=== PATIENT | female | born 1960 | race Caucasian/White ===

== ENCOUNTER → 2022-07-21 10:41 | Outpatient (CLI) | payer MEDICARE, SELFPAY ==
--- NOTE | 2022-07-21 10:49 | MM_ITS ---
PROCEDURE INFORMATION: Exam: Bilateral Screening 3D Mammography Exam date and time: 07/21/2022 10:43 AM Age: 61 years old Clinical indication: Screening mammogram TECHNIQUE: Imaging protocol: Bilateral Screening tomosynthesis and 2D mammography including computer-aided detection (CAD) when performed. COMPARISON: MAMM-SCREENING W/FERNY 05/12/2019 11:00 AM FINDINGS: MAMMOGRAPHY: Breast composition: The breast is heterogeneously dense, which may obscure small masses. Mass: None. Architectural distortion: No new or suspicious architectural distortion. Calcifications: Stable benign-appearing calcifications are present. No new or suspicious cluster of microcalcifications have developed. Asymmetric density: No new or suspicious asymmetric density is present Skin thickening: None. Axillary adenopathy: None. IMPRESSION: No mammographic evidence of malignancy. Recommend annual screening mammography unless otherwise clinically indicated. ASSESSMENT: BI-RADS category 2: Benign
== END ==
PROVIDERS: PCP Family Medicine; Visit Provider Family Medicine
DX: Z12.31 Encounter for screening mammogram for malignant neoplasm of breast (principal)
CPT/HCPCS: 77063; 77067

== ENCOUNTER → 2022-07-23 12:25 | Outpatient (CLI) | payer MEDICARE, SELFPAY ==
--- NOTE | 2022-07-23 12:32 | XR_ITS ---
FINAL REPORT CLINICAL HISTORY: Foot Pain FINDINGS: AP, oblique and lateral views of the left foot were obtained. There is no prior exam for comparison. There is no acute fracture or dislocation. The joint spaces are preserved. Soft tissues are normal. IMPRESSION: No acute osseous abnormality of the left foot. Reviewed, Interpreted and Dictated by Senait Tom MD Transcribed by Carlie Kuhn Authenticated and [facility]
--- NOTE | 2022-07-23 12:32 | XR_ITS ---
FINAL REPORT CLINICAL HISTORY: Foot Pain FINDINGS: AP, oblique and lateral views of the right foot were obtained. There is no prior exam for comparison. There is no acute fracture or dislocation. The joint spaces are preserved. Soft tissues are normal. IMPRESSION: No acute osseous abnormality of the right foot. Reviewed, Interpreted and Dictated by Senait Tom MD Transcribed by Carlie Kuhn Authenticated and [facility]
== END ==
LOC: RAD 12:28
PROVIDERS: PCP Family Medicine; Visit Provider Nurse Practitioner Family
DX: M79.672 Pain in left foot (principal); M79.671 Pain in right foot
CPT/HCPCS: 73630

== ENCOUNTER 2022-07-31 12:24 | Day surgery (SDC) | payer MEDICARE, SELFPAY ==
[2022-07-23 12:34] VITALS: BMI 19.9
[2022-07-31 13:19] VITALS: BP 150/62; PULSE 62; RESP 18; TEMP 36.4; O2SAT 100
--- NOTE | 2022-07-31 13:49 | P.PN_ITS ---
[facility] Disclaimer: The information contained in this section may have been updated after the patient was seen, as this information can be updated by other users. Medical History Anxiety Arthritis Asthma CAD (coronary artery disease) CHF (congestive heart failure) COPD (chronic obstructive pulmonary disease) Depression Diabetes mellitus GERD (gastroesophageal reflux disease) Hyperlipidemia Hypertension Hypothyroid Insomnia Neuropathy Vitamin D deficiency Surgical History H/O total hysterectomy History of cholecystectomy Hx of CABG Hx of cardiac cath S/P breast lumpectomy Family History Father Cancer Coronary artery disease Heart attack Mother Heart attack Coronary artery disease Hypertension Brother Coronary artery disease Diabetes Heart attack Hypertension Stroke Sister Coronary artery disease Diabetes Stroke Social History Smoking Status: Current every day smoker tobacco type: cigarettes packs per day: 1 pack-years: 40 alcohol intake: never substance use type: denies use current occupational status: disabled Travel in the last 8 weeks: None household members: family housing: house marital status: number of children: 2 education level: high school caffeine: Yes special javier needs: No agree to transfusion: No do you feel safe at home: Yes victim of physical abuse: No victim of emotional abuse: No victim of sexual abuse: No would you like helpful sources: No [facility] Anesthesia Checklist Patient Identification Patient Identification: Arm Band and Verbal (Name & ) Structural Data Admitted From: Home Planned Operative Procedure/s: Colonoscopy Consent for Planned Operative Procedure(s) Verified: Yes NPO Status Verified Time NPO: 00:00 Airway Assessment C-Spine Mobility Assessed: Yes TMJ Mobility Assessed: Yes Dentition: Dentures-poor fitting Neurological Assessment Level of Consciousness: Awake Hx Seizures: No Numbness or tingling in extremities: No Anesthesia Plan Anesthesia Risk discussed: Yes Anesthesia Plan: Verified ASA Class: IV Anesthesia Type: MAC Preoperative Comments Pre-Operative Comments: Increased risk of complications including cardiac arrest, AL and due to recent history of chest pain relieved by NTG, explained to patient and sister. Patient and sister verbalized understanding and agreed to proceed.
[2022-07-31 13:51] VITALS: O2SAT 98
[2022-07-31 14:11] VITALS: BP 88/39; PULSE 51; RESP 18; TEMP 36.1; O2SAT 95
--- NOTE | 2022-07-31 14:20 | HMH.SCOPE ---
Procedure: Date: 07/31/22 Patient Date of :: 1960 Procedure Performed:: Diagnostic colonoscopy Indications:: Rectal bleeding Performing Provider:: Nicole Franco MD Referring Provider:: Marilu Li MD Sedation:: Propofol Procedure:: After placing the patient in the left lateral decubitus position, the colonoscopy was gently inserted into the rectum and under direct visualization advanced to the cecum which was identified by transillumination in the right lower quadrant, identification of the ileocecal valve, appendiceal orifice, and cecal strap. Color, texture, mucosa, and anatomy of the colon were carefully examined with the scope. Findings:: Anal canal: normal, external hemorrhoid tags, not removable via endoscopy Rectum: normal, minor hemorrhoids Sigmoid colon: normal without polyps or inflammatory changes, scattered diverticulosis Descending colon: normal without polyps or inflammatory changes Splenic flexure: normal Transverse colon: normal without polyps or inflammatory changes Hepatic flexure: normal Ascending colon: normal without polyps or inflammatory changes Cecum: normal Terminal ileum: not visualized Impression: Overall normal colonoscopy with minor hemorrhoids and scattered diverticuli Recommendations:: Follow up examination in about FIVE years or so, sooner if clinically indicated. Complications:: None Estimated blood obtained (mL): 0
[2022-07-31 14:21] VITALS: BP 109/62; PULSE 60; RESP 18; O2SAT 100
[2022-07-31 14:31] VITALS: BP 115/57; PULSE 57; RESP 16; O2SAT 100
--- NOTE | 2022-07-31 14:34 | SUR.PHASEII ---
pt's blood sugar after reassessment from scope room was 135.
[2022-08-01 10:20] LABS: POC Glucose,Bedside 54 (70-110)
[2022-08-01 10:20] LABS: POC Glucose,Bedside 135 (70-110)
== END 2022-07-31 14:46 | disposition home or self-care (01) ==
PROVIDERS: PCP Family Medicine; Visit Provider Internal Medicine Gastroenterology
PROC: 0DJD8ZZ Inspection of Lower Intestinal Tract, Via Natural or Artificial Opening Endoscopic (ICD-10-PCS; CPT 45378; principal; 2022-07-31 13:30)
DX: K62.5 Hemorrhage of anus and rectum (principal); K57.30 Diverticulosis of large intestine without perforation or abscess without bleeding; K64.8 Other hemorrhoids; F17.210 Nicotine dependence, cigarettes, uncomplicated; Z79.899 Other long term (current) drug therapy; E11.9 Type 2 diabetes mellitus without complications
CPT/HCPCS: 45378; 82962

== ENCOUNTER → 2022-08-06 14:32 | Outpatient (CLI) | payer MEDICARE, SELFPAY ==
--- NOTE | 2022-08-06 14:32 | CT_ITS ---
FINAL REPORT CLINICAL HISTORY: lung cancer screening, 1 PPD X 30 YEARS FINDINGS: Low-Dose Chest CT Axial images were obtained from the lung apex to the mid abdomen by computed tomography. Low-dose protocol was utilized. CTDI vol (mGy): 2.90 DLP (mGy-cm): 103.68 There are postoperative changes from median sternotomy. There is no axillary adenopathy. There is no hilar or mediastinal adenopathy. The heart is proper size. Fat at the apex of the left ventricle likely represents sequela prior myocardial infarction. There is no pericardial or pleural effusion. Lung window images demonstrate mild scarring. There are several calcified granulomas. No suspicious infiltrate or nodule is identified. Limited images of the upper abdomen are unremarkable. IMPRESSION: No suspicious infiltrate or nodule is identified. Lung RADS category 1. Recommend 12 month follow-up low-dose chest CT. Reviewed, Interpreted and Dictated by Barry Shields III, MD Transcribed by Evelin Cruz Authenticated and [facility]
== END ==
PROVIDERS: PCP Family Medicine; Visit Provider Family Medicine
DX: Z87.891 Personal history of nicotine dependence (principal); Z12.2 Encounter for screening for malignant neoplasm of respiratory organs
CPT/HCPCS: 71271

== ENCOUNTER → 2022-08-14 11:39 | Outpatient (CLI) | payer MEDICARE, SELFPAY ==
[2022-08-14 11:47] LABS: Microscopic, Urine URINE MICROSCOPIC (MICROSCOPIC)
[2022-08-14 12:11] LABS: Basophils # 0.1 K/mm3 (0-0.2); Basophils % 0.9 % (0.1-2.0); Eosinophils # 0.3 K/mm3 (0.0-0.4); Eosinophils % 4.1 % (0.1-12.0); Hematocrit 40.9 % (37.0-47.0); Hemoglobin 12.8 g/dL (12.2-16.2); Lymphocytes # 1.7 K/mm3 (0.7-4.5); Lymphocytes % 27.4 % (10-50); Mean Corpuscular HGB Conc 31.4 g/dL (31.8-35.4); Mean Corpuscular Hemoglobin 30.1 pg (27.0-31.2); Mean Platelet Volume 8.1 fl (7.4-10.4); Monocytes # 0.5 K/mm3 (0.1-1.0); Neutrophils # 3.7 K/mm3 (1.8-7.8); Neutrophils % 59.6 % (37.0-80.0); Platelet Count 261 K/mm3 (142-424); Red Blood Count 4.26 M/mm3 (4.20-5.40); Red Cell Distribution Width 13.1 % (11.5-17.5); White Blood Count 6.2 K/mm3 (4.8-10.8)
[2022-08-14 12:13] LABS: Appearance,Urine CLEAR (Clear); Bilirubin,Urine Negative (Negative); Blood, Urine TRACE-I (Negative); Color,Urine YELLOW (Yellow); Glucose,Urine (UA) 2+ (Negative); Ketones,Urine Negative (Negative); Leukocyte Esterase,Urine Negative (Negative); Nitrate,Urine Negative (Negative); Protein,Urine TRACE (Negative); Specific Gravity, Urine <= 1.005 (1.005-1.030); Urobilinogen,Urine 0.2 EU/dl (0.2)
[2022-08-14 12:29] LABS: Creatinine,Urine Random 32 mg/dL (Not Estab.)
[2022-08-14 12:33] LABS: Alanine Aminotransferase 22 U/L (12-78); Albumin Level 4.2 g/dl (3.5-5.0); Albumin/Globulin Ratio 1.7 (1.1-1.8); Alkaline Phosphatase 102 U/L (38-126); Anion Gap 12.3 mEq/L (5-15); Aspartate Amino Transferase 26 U/L (14-36); Bilirubin,Total 0.5 mg/dl (0.2-1.3); Blood Urea Nitrogen 8 mg/dl (7-17); Calcium 9.5 mg/dl (8.4-10.2); Carbon Dioxide 27 mmol/L (22.0-30.0); Chloride 102 mmol/L (98-107); Chol/HDL Ratio 1.8 (1-3.5); Cholesterol 111 mg/dl (140-200); Estimated Glomerular Filt Rate 85 ml/min (>60); GFR (African American) 102 ML/MIN (>60); Globulin 2.5 g/dL (1.3-3.2); Glucose 236 mg/dl (74-100); HDL Cholesterol 61 mg/dl (40-60); Potassium 4.3 mmoL/L (3.5-5.1); Sodium 137 mmol/L (136-145); Total Protein,Serum 6.7 g/dl (6.3-8.2); Triglycerides 69 mg/dl (30-150); VLDL Cholesterol 14 mg/dL (0-40)
[2022-08-14 12:36] LABS: Microalbumin/Creatinine Ratio 377.1
[2022-08-14 12:44] LABS: Direct LDL Cholesterol 38.63 mg/dL (100-129)
[2022-08-14 12:46] LABS: WBC,Urine Occasional #/hpf (0-3)
[2022-08-14 13:03] LABS: Thyroid Stimulating Hormone 0.02 uIU/mL (0.465-4.68)
[2022-08-14 13:34] LABS: Hemoglobin A1C 10.3 % (4.0-6.0)
== END ==
PROVIDERS: PCP Family Medicine; Visit Provider Family Medicine
DX: I10 Essential (primary) hypertension (principal); E11.9 Type 2 diabetes mellitus without complications; E03.9 Hypothyroidism, unspecified; E78.5 Hyperlipidemia, unspecified; Z79.4 Long term (current) use of insulin
CPT/HCPCS: 36415; 80053; 80061; 81001; 82043; 82570; 83036; 84443; 85025

== ENCOUNTER → 2022-10-08 13:53 | Outpatient (CLI) | payer MEDICARE, SELFPAY ==
--- NOTE | 2022-10-08 13:53 | US_ITS ---
FINAL REPORT CLINICAL HISTORY: hypothyroidism COMPARISON: None FINDINGS: Ultrasound of the thyroid gland: The right lobe of the thyroid is small, measuring 1.5 by 0.5 x 0.9 cm in size. No focal mass or nodule is visualized. The left lobe of the thyroid gland is also small, measuring 1.3 x 0.6 x 0.6 cm in size. No focal mass or nodule is visualized. The isthmus of the thyroid gland measures 0.2 cm in thickness. IMPRESSION: Atrophic thyroid gland, most likely secondary to chronic thyroiditis. No focal mass or nodule seen. Reviewed, Interpreted and Dictated by Barry Shields III, MD Transcribed by Monet Elmore Authenticated and [facility]
== END ==
LOC: RAD 13:53
PROVIDERS: PCP Nurse Practitioner Family; Visit Provider Nurse Practitioner Family
DX: E03.9 Hypothyroidism, unspecified (principal)
CPT/HCPCS: 76536

== ENCOUNTER → 2022-10-16 13:58 | Outpatient (POV) | payer MEDICARE, SELFPAY ==
--- NOTE | 2022-10-16 14:34 | EXP.PAIN.OV ---
HPI Data of Consult Patient: new to practice Consult date: 10/16/22 Requesting Physician: Sheri Li APRN Primary Care Provider: Ximena Tejeda APRN Consult Narrative Reason for consult: Diabetic neuropathy, feet legs and hand tingling History of present illness: Ms. Pugh is a 61 year old female who presents today as a new patient. She is a referral from Ximena Tejeda's office. Today she rates her pain a 10 out of 10. Patient states she has numbness and tingling throughout multiple areas including her hands feet and legs. Patient states this has been going on for at least 20 years related to her diabetes progression. Patient states that she has tried multiple medications [id number] such as Tylenol and ibuprofen along with heat and ice and topicals with no additional relief. Patient does have a significant history of hypertension along with cardiac history including previous CABG and COPD. Patient is currently managed with gabapentin 300 mg 3 times a day however she states that she does not have any additional relief with this medication. Patient states that she does see podiatry here at the hospital however this continues to be a chronic pain that does affect her ability to perform activities of daily living. Patient states that she cannot function or even walk for small amounts of. Without having significant pain and having to stop and take breaks. Her Chance is [phone]. Its been reviewed and appropriate. CC: Sheri Li APRN [facility] Disclaimer: The information contained in this section may have been updated after the patient was seen, as this information can be updated by other users. Medical History (Updated 10/16/22 @ 14:40 by Sheri Li APRN) Anxiety Arthritis Asthma CAD (coronary artery disease) Callus of foot CHF (congestive heart failure) COPD (chronic obstructive pulmonary disease) Depression Diabetes mellitus External hemorrhoids Foot callus Foot pain GERD (gastroesophageal reflux disease) Hyperlipidemia Hypertension Hypothyroid Incurvated nail Insomnia Keratosis Neuropathy Vitamin D deficiency Weight loss Surgical History (Updated 10/02/22 @ 12:11 by Rakel Guy LPN) H/O total hysterectomy History of cholecystectomy Hx of CABG Hx of cardiac cath Hx of colonoscopy Hx of laparoscopy S/P breast lumpectomy Family History Father Cancer Colon Coronary artery disease Heart attack Mother Heart attack Coronary artery disease Hypertension Brother Coronary artery disease Diabetes Heart attack Hypertension Stroke Sister Coronary artery disease Diabetes Stroke Social History Smoking Status: Current every day smoker tobacco type: cigarettes packs per day: 1 pack-years: 40 alcohol intake: never substance use type: denies use current occupational status: disabled Travel in the last 8 weeks: None household members: family housing: house marital status: number of children: 2 education level: high school caffeine: Yes special javier needs: No agree to transfusion: No do you feel safe at home: Yes victim of physical abuse: No victim of emotional abuse: No victim of sexual abuse: No would you like helpful sources: No Review of Systems Review of Systems Review of systems:: pertinent systems reviewed and negative unless documented below Review of systems (narrative): Review of Systems: General: No recent weight changes, no fever, no sleep disturbances Respiratory: No cough, no shortness of air, no recurring pulmonary infections Cardiovascular/peripheral vascular: No chest pain, no palpitations, no edema, no shortness of breath Gastrointestinal: No new onset incontinence, normal bowel movements reported Genitourinary: No new onset incontinence Musculoskeletal: Hand, feet, lower leg numbnes
[2022-10-16 14:50] VITALS: BP 102/81; PULSE 56; RESP 18; O2SAT 97; BMI 20.1
== END ==
PROVIDERS: PCP Nurse Practitioner Family; Visit Provider Nurse Practitioner Family
DX: E11.40 Type 2 diabetes mellitus with diabetic neuropathy, unspecified (principal); M79.671 Pain in right foot; M79.672 Pain in left foot; M54.16 Radiculopathy, lumbar region; M79.643 Pain in unspecified hand; G89.4 Chronic pain syndrome
CPT/HCPCS: 99202; 99212; G0463

== ENCOUNTER → 2022-12-04 15:47 | Outpatient (CLI) | payer MEDICARE, SELFPAY ==
[2022-12-04 13:03] LABS: Chol/HDL Ratio 1.9 (1-3.5); Cholesterol 113 mg/dl (140-200); HDL Cholesterol 58 mg/dl (40-60); Triglycerides 58 mg/dl (30-150); VLDL Cholesterol 12 mg/dL (0-40)
[2022-12-04 13:14] LABS: Direct LDL Cholesterol 46.65 mg/dL (100-129)
[2022-12-04 13:35] LABS: Thyroid Stimulating Hormone 1.55 uIU/mL (0.465-4.68)
[2022-12-04 13:42] LABS: Hemoglobin A1C 9.6 % (4.0-6.0)
== END ==
PROVIDERS: PCP Nurse Practitioner Family; Visit Provider Nurse Practitioner Family
DX: E78.5 Hyperlipidemia, unspecified (principal); E11.9 Type 2 diabetes mellitus without complications; Z79.4 Long term (current) use of insulin
CPT/HCPCS: 80061; 83036; 84443

== ENCOUNTER → 2022-12-09 07:22 | Outpatient (CLI) | payer MEDICARE, SELFPAY ==
--- NOTE | 2022-12-09 | CA_ITS ---
APPROVED REPORT Exam: Pharmacologic Technologist: Sharyn Lau, Ht: 5 ft 1 in Wt: 110 lbs BSA: 1.47 m2 HR: 57 bpm BP: 173/62 mmHg Rhythm: NSR Medical History Medications: Lisinopril,,,,, Levothyroxine,,,,, Gabapentin,,,,, Atorvastatin,,,,, Buspirone,,,,, Albuterol,,,,, Montelukast,,,,, ADVAIR,,,,, Escitalopram Oxalate,,,,, Tresiba,,,,, Metoprolol Succinate ER,,,,, BuPROPION HCI,,,,, Stress Test Details Test: LEXISCAN Reason for pharmacologic stress test: physical limitation. HR Resting HR: 57 bpm Max Heart Rate (APMHR): 157 bpm Max HR Achieved: 70 bpm Target HR (85% APMHR): 133 bpm % of APMHR: 45 Recovery HR: 67 bpm BP Resting BP: 173.0/62.0 mmHg Max BP: 173.0/62.0 mmHg Recovery BP: 157.0/77.0 mmHg ECG Resting ECG: SB with RBBB Stress ECG: No ST changes Arrhythmia: PVCs Clinical Exercise duration: 04:16 min Highest Stage Achieved: Stress ECG Conclusion Symptoms: chest tightness, dyspnea, nausea Arrhythmias/Ectopy: PVCs ST-T Changes: No significant ST changes. Conclusion: Unremarkable Lexiscan stress test. Myoview images are reported separately. Test Summary REST . . . . . . . Resting REST . . . . . . . Resting REST 02:47 . . 57 . 173/ 62 . . Stage 1 . . . . . . . Myoview Injected Stage 1 01:00 . . 61 . . . . Stage 2 01:00 . . 68 . . . . Stage 3 01:00 . . 68 . 155/ 67 . . Stage 4 01:00 . . 68 . 160/ 73 . . Stage 4 01:16 . . 68 . 165/ 75 . Stop exercise at 04:16 RECOVERY 01:00 . . 68 . . . . RECOVERY 02:00 . . 66 . 159/ 71 . . RECOVERY 03:00 . . 66 . 161/ 76 . . RECOVERY 04:00 . . 67 . 161/ 76 . . RECOVERY 04:14 . . 65 . 157/ 77 . . Electronically signed by : Melina Hoyt, 12/09/2022 18:58:01
--- NOTE | 2022-12-09 07:22 | NM_ITS ---
APPROVED REPORT Exam: Nuclear Stress Test Indication: CAD, 3 STENTS, CABG, HTN, DM, HYPERLIPIDEMIA, TOB USE, FM HX, C.P., SOB, PALIPITATIONS, SYNCOPE, FATIGUE Patient Location: Outpatient Stress Tech: Sharyn Starr [place] Tech:Fay Whitney, ARRT RT (R)(N)(M) Ht: 5 ft 2 in Wt: 110 lbs Bra Size: 32C HR: 57 bpm BP: 173/62 mmHg BSA: 1.48 m2 Rhythm: NSR TID: 1.19 BMI: 20.1 History: CAD, 3 STENTS, CABG, HTN, DM, HYPERLIPIDEMIA, TOB USE, FM HX, C.P., SOB, PALIPITATIONS, SYNCOPE, FATIGUE Procedure: Patient received 0.4 mg of intravenous Lexiscan, resting heart rate 57 bpm, resting blood pressure 173/62 mmHg, with Lexiscan maximum heart rate achieved was 68 bpm which is % of the maximum predicted heart rate and blood pressure was 155/67 mmHg. PT DID C/O OF CHEST TIGHTNESS WITH LEXISCAN Cardiac Stress and Resting SPECT Images: Cardiac Stress and Resting SPECT images were obtained using technetium 99m Myoview 29.8 mCi stress and 10.83 mCi at rest. Resting and stress imaging in both supine and prone positions demonstrate a large sized, severe, partially reversible perfusion defect in the entire anterior and basal to mid anterolateral and lateral LV munson involving the apical LV region. Gated imaging demonstrates mild reduction in global LV systolic function. There is moderate hypokinesis in the anterior, anterolateral, and lateral LV munson. LVEF is calculated at 42%. Conclusion: Large sized, severe, partially reversible perfusion defect in the entire anterior and basal to mid anterolateral and lateral LV munson involving the apical LV region. Findings are suggestive of partial reversible ischemia. Gated imaging demonstrates mild reduction in global LV systolic function. There is moderate hypokinesis in the anterior, anterolateral, and lateral LV munson. LVEF is calculated at 42%. Electronically signed by : Melina Hoyt, 12/09/2022 19:01:56
== END ==
LOC: RAD 07:22
PROVIDERS: PCP Nurse Practitioner Family; Visit Provider Nurse Practitioner
DX: I25.10 Atherosclerotic heart disease of native coronary artery without angina pectoris (principal)
CPT/HCPCS: 78452; 93017; A9502; J2785

== ENCOUNTER → 2022-12-12 14:29 | Outpatient (CLI) | payer MEDICARE, SELFPAY ==
--- NOTE | 2022-12-12 14:30 | US_ITS ---
FINAL REPORT CLINICAL HISTORY: right posterior knee lipoma COMPARISON: None FINDINGS: ULTRASOUND SOFT TISSUE Sonographic images were obtained in the area of interest in the right posterior knee. There is a 4.7 x 2.4 cm complex cystic area in the popliteal fossa which may represent complex popliteal cyst, hematoma, or other cystic mass. IMPRESSION: 4.7 cm complex cystic area as above. Recommend follow-up ultrasound or MRI for further evaluation. Reviewed, Interpreted and Dictated by Barry Shields III, MD Transcribed by Phyllis Randle Authenticated and [facility]
--- NOTE | 2022-12-12 15:02 | CA_ITS ---
APPROVED REPORT EXAM: Comprehensive 2D, Doppler, and color-flow Echocardiogram Certified Technician Specialist: Sandra Tirado, RCS, RVS Ht: 5 ft 2 in Wt: 108lbs BSA: 1.47 BP: 135/64 mmHg Indications: CAD, SP [id number], Smoker, HTN, DM, SOB, Palpitations 2D Dimensions IVSd 0.75 cm LVEF (Visual) 42.00 % PWd 0.86 cm LA Volume 43.80 mL LVDd 5.24 cm LA Volume Index 29.00 mL/m2 (M/F) 16-34 LVDs 3.15 cm Aortic Root 2.81 cm Left Atrium 2.99 cm LVOT 2.02 cm (M/F) 1.5-2.5 M-Mode Dimensions RVDd 2.60 cm (0.9-2.6) LA Diam 3.20 cm (1.9-4.0) LVDd 6.10 cm (3.5-5.7) Ao Diam 2.99 cm (2.0-3.7) LVDs 4.79 cm (3.5-5.7) IVSd 0.77 cm (0.6-1.1) PWd 0.63 cm (0.6-1.1) EF (Teich) 38.90% EPSs 1.41 cm FS 19.20% EDV (Teich) 175.20 mL TAPSE 1.11 (<1.7) ESV (Teich) 107.00 mL LV Diastology E Decel Time 227.00 (160-240 msec) E/A Ratio 1.26 MED E' 4.40 (< 7 cm/sec) MED A' 8.40 cm/s E'/MED E' Ratio 17.27 (>14) LAT E' 7.60 (<10 cm/sec) LAT A' 7.00 cm/s E/LAT E' Ratio 10.00 (>14) Aortic Valve LVOT Max 91.00 (70-110 cm/s) LVOT VTI 20.45 cm AoV Peak Jack. 143.00 (50-130 cm/s) AO Peak GR. 8.20 mmHg AO Mean GR. 4.10 (<5 mmHg) AO VTI 32.44 (18-25 cm) ROSA (VTI) 2.02 (2.5-4.5 cm2) Mitral Valve MV E Max Jack. 76.00 (40-130 cm/s) MV A Velocity 60.00 (40-130 cm/s) E/A Ratio 1.26 MV Decel. Time 227.00 (160-240 ms) MV PHT 66.00 ms Pulmonary Valve PV Peak Velocity 66.00 (50-150 cm/s) Tricuspid Valve TR P. Velocity 266.00 cm/s Left Ventricle The left ventricle is normal size. Left ventricular systolic function is mildly decreased. There is increased LV wall thickness. There is mild global hypokinesis. The distal anterolateral and apical LV munson are severely hypokinetic. Diastolic function is indeterminate. LVEF is 40-45%. Right Ventricle The right ventricle is normal size. The right ventricular systolic function is normal. There is increased RV wall thickness. Atria Left atrium is mildly dilated. The right atrium size is normal. There is no Doppler evidence of interatrial shunt. Aortic Valve The aortic valve is mildly thickened. The aortic valve opens well. There is no aortic valvular stenosis. No aortic regurgitation is present. Mitral Valve The mitral valve is normal in structure. No evidence of mitral valve stenosis. Mild mitral regurgitation. Tricuspid Valve The tricuspid valve leaflets are thin and pliable. Mild tricuspid regurgitation. RVSP is 30-35 mmHg. Pulmonic Valve The pulmonary valve is grossly normal in structure. Trace pulmonic regurgitation. Great Vessels The aortic root is normal in size. The ascending aorta is normal in size. IVC is normal in size and collapses >50% with inspiration. Pericardium There is no pericardial effusion. Other Information Study Quality: Fair Conclusion Mild reduction in systolic LV function (LVEF 40-45%) Severe hypokinesis of the distal anterolateral and apical LV munson. No significant valvular disease. Electronically signed by : Melina Hoyt, 12/14/2022 17:24:54
== END ==
LOC: RAD 14:30
PROVIDERS: PCP Nurse Practitioner Family; Visit Provider Nurse Practitioner
DX: D17.20 Benign lipomatous neoplasm of skin and subcutaneous tissue of unspecified limb (principal); R06.00 Dyspnea, unspecified; R60.0 Localized edema
CPT/HCPCS: 76882; 93306

== ENCOUNTER 2023-01-02 07:52 | Day surgery (SDC) | payer MEDICARE, SELFPAY ==
[2023-01-02] VITALS (13 sets, daily range): BP systolic 148–185; BP diastolic 77–102; PULSE 55–73; RESP 17–20; TEMP 37; O2SAT 95–99; BMI 19.9
--- NOTE | 2023-01-02 07:09 | IR_ITS ---
APPROVED REPORT Patient Location: Outpatient PROCEDURES Selective coronary angiogram Catheter placed in the left subclavian artery Left subclavian artery angiogram with left internal mammary angiography Selective engagement of the saphenous vein graft to the left coronary system Drug-eluting stent deployment to the proximal circumflex artery INDICATION Coronary artery disease, High risk abnormal Myoview, History of coronary bypass surgery, New onset and accelerated angina pectoris Informed consent was obtained prior to the procedure. COMPLICATIONS None Estimated Blood Loss: Less than 10 mls TECHNIQUE 1% lidocaine used anesthetize the right groin the right femoral artery was accessed via the center technique and a 5 Surinamese sheath is placed in the right femoral artery. A JL 4 and a JR4 catheter were used to perform selective coronary angiography as well as engagement of the left internal mammary artery via and directed angiography through subclavian angiography. The JR4 catheter was used to engage the saphenous vein graft to the left coronary system and distal right coronary. At the end the diagnostic angiogram therapeutic heparin was administered giving a therapeutic ACT and the 5 [place]amese sheath was exchanged for a 6 [place]amese sheath. A 6 [place]amese JL 4 guide catheter was placed in left main artery followed by Choice PT extra-support wire down the circumflex artery. A 2.5 x 12 mm noncompliant balloon was deployed at 20 jd reducing the stenosis. A 3 mm x 22 mm [place] frontier stent was then placed in the proximal to mid circumflex artery and deployed at 20 jd reducing the critical stenosis to 0%. HARVINDER-3 flow was present before and after the procedure. At the end procedure the apparatus was removed the groin is reprepped closure change sheath was removed good hemostasis was achieved using Perclose device patient was transferred to the postop holding in stable condition ANGIOGRAPHIC RESULTS The left main artery Has an ostial 10% stenosis The left anterior descending artery Has proximal 40 to 50% stenosis with a mid vessel 40% stenosis with additional mid vessel 40% stenosis. The LAD does not supply the apex however is patent The circumflex artery Is a large vessel with a proximal 95% calcified stenosis. There are 2 small to medium sized terminal obtuse marginal arteries. The terminal obtuse marginal artery has a proximal 90% stenosis however the vessel is 1.5 mm in diameter. The other terminal obtuse marginal artery is widely patent The right coronary artery Is dominant and subtotally occluded throughout The CHIU ventriculogram reveals Not performed The left ventricular end-diastolic pressure Not measured RASHID graft is proximally occluded Large saphenous vein graft supplies a high first diagonal artery and then skips to a large posterior descending artery from the distal right coronary artery. The PDA is widely patent and supplies and wraps the apex. The entire vein graft is free of disease IMPRESSION Unbypassed circumflex artery as described above Successful stenting the proximal circumflex artery critical disease reduced to 0% with 1 drug-eluting stent PLAN 1. Dual antiplatelet therapy 2. Avoidance of tobacco products 3. LDL less than 55 to be achieved with high intensity statin 4. Cardiac rehabilitation 5. Standard therapy for ischemic heart disease Electronically signed by : Elliott Mcgregor MD 01/02/2023 11:50:25
[2023-01-02 08:35] LABS: Basophils % 0.6 % (0.1-2.0); Eosinophils # 0.2 K/mm3 (0.0-0.4); Eosinophils % 4.3 % (0.1-12.0); Hematocrit 36.9 % (37.0-47.0); Hemoglobin 11.8 g/dL (12.2-16.2); Lymphocytes # 1.7 K/mm3 (0.7-4.5); Lymphocytes % 37.7 % (10-50); Mean Corpuscular Hemoglobin 31.5 pg (27.0-31.2); Mean Corpuscular Volume 98.3 fl (81-99); Mean Platelet Volume 7.7 fl (7.4-10.4); Monocytes # 0.3 K/mm3 (0.1-1.0); Monocytes % 6.4 % (1.7-9.3); Neutrophils # 2.4 K/mm3 (1.8-7.8); Neutrophils % 51.1 % (37.0-80.0); Platelet Count 214 K/mm3 (142-424); Red Blood Count 3.75 M/mm3 (4.20-5.40); Red Cell Distribution Width 13.4 % (11.5-17.5); White Blood Count 4.6 K/mm3 (4.8-10.8)
[2023-01-02 08:43] LABS: Anion Gap 7.7 mEq/L (5-15); Blood Urea Nitrogen 14 mg/dl (7-17); Calcium 8.9 mg/dl (8.4-10.2); Carbon Dioxide 29 mmol/L (22.0-30.0); Chloride 105 mmol/L (98-107); Creatinine Clearance Estimated 44 mL/min (50-200); Estimated Glomerular Filt Rate 84 ml/min (>60); GFR (African American) 102 ML/MIN (>60); Glucose 147 mg/dl (74-100); Potassium 3.7 mmoL/L (3.5-5.1); Sodium 138 mmol/L (136-145)
[2023-01-02 12:38] LABS: CATHL Activated Clotting Time 291 SEC (74-125)
--- NOTE | 2023-01-02 14:00 | P.CONPHA_ITS ---
[employer] Lead Discharge Med Pain Management Specialist: Diann Pugh has received discharge medication counseling on the following medications: CLOPIDOGREL 75 MG DAILY LISINOPRIL [address] 81 MG DAILY ATORVASTATIN 80 MG HS METOPROLOL SUCCINATE 100 MG DAILY MD STOPPED LISINOPRIL 2.5 MG DAILY.
== END 2023-01-02 14:38 | disposition home or self-care (01) ==
PROVIDERS: PCP Nurse Practitioner Family; Visit Provider Internal Medicine
DX: R94.39 Abnormal result of other cardiovascular function study (principal); F17.210 Nicotine dependence, cigarettes, uncomplicated; Z79.4 Long term (current) use of insulin; E11.9 Type 2 diabetes mellitus without complications; Z79.899 Other long term (current) drug therapy; Z95.1 Presence of aortocoronary bypass graft; I25.118 Atherosclerotic heart disease of native coronary artery with other forms of angina pectoris; E55.9 Vitamin D deficiency, unspecified; I11.0 Hypertensive heart disease with heart failure; I50.20 Unspecified systolic (congestive) heart failure
CPT/HCPCS: 80048; 85025; 85347; 92928; 93459; 99152; 99153; C1725; C1760; C1769; C1876; C1894; C9600; J1644; Q9967

== ENCOUNTER → 2023-02-10 12:40 | Outpatient (CLI) | payer MEDICARE, SELFPAY ==
--- NOTE | 2023-02-10 12:46 | XR_ITS ---
FINAL REPORT CLINICAL HISTORY: Rt Knee pain, KNOT POSTERIOR KNEE COMPARISON: None FINDINGS: Three views of the right knee reveal no evidence of fracture or dislocation. The bony alignment is normal. Mild degenerative changes present. Mild vascular calcifications are present as well. There is no evidence of joint effusion. No localized soft tissue abnormality is identified. IMPRESSION: No acute abnormality identified. Reviewed, Interpreted and Dictated by Barry Shields III, MD Transcribed by Monet Elmore Authenticated and [facility]
== END ==
LOC: RAD 12:42
PROVIDERS: PCP Nurse Practitioner Family; Visit Provider Orthopaedic Surgery
DX: R22.41 Localized swelling, mass and lump, right lower limb (principal)
CPT/HCPCS: 73562

== ENCOUNTER → 2023-02-26 11:50 | Outpatient (CLI) | payer MEDICARE, SELFPAY ==
--- NOTE | 2023-02-26 11:51 | MR_ITS ---
FINAL REPORT CLINICAL HISTORY: Rt Knee Pain. posterior bakers cyst. COMPARISON: None FINDINGS: Multiplanar and multisequence imaging of the right knee were obtained before and after injection of intravenous contrast. There is motion artifact on some of the images decreasing sensitivity of this exam. There is medial meniscal degeneration with possible tear of the posterior horn. The lateral meniscus is intact. The anterior and posterior cruciate ligaments are intact. The medial collateral ligament and lateral ligamentous complex are intact. The quadriceps and patellar tendons are intact. There is no evidence of fracture or bone marrow edema. There is mild patellar chondromalacia. A small joint effusion is noted. There is a popliteal cyst measuring up to 5.1 cm. IMPRESSION: Medial meniscal degeneration with possible tear posterior horn. Popliteal cyst measuring up to 5.1 cm. Reviewed, Interpreted and Dictated by Barry Shields III, MD Transcribed by Phyllis Randle Authenticated and [facility]
[2023-02-26 12:23] LABS: Blood Urea Nitrogen 13 mg/dl (7-17)
[2023-02-26 12:24] LABS: Estimated Glomerular Filt Rate 72 ml/min (>60); GFR (African American) 87 ML/MIN (>60)
--- NOTE | 2023-02-26 13:13 | XR_ITS ---
FINAL REPORT CLINICAL HISTORY: lt elbow pain COMPARISON: None FINDINGS: LEFT ELBOW 3 views were obtained. There is no acute fracture or dislocation. There is no joint effusion. There is mild degenerative change. There is no soft tissue abnormality. IMPRESSION: Mild degenerative change without acute process. Reviewed, Interpreted and Dictated by Barry Shields III, MD Transcribed by Phyllis Randle Authenticated and [facility]
== END ==
LOC: RAD 11:51
PROVIDERS: PCP Nurse Practitioner Family; Visit Provider Orthopaedic Surgery
DX: M25.522 Pain in left elbow; R22.41 Localized swelling, mass and lump, right lower limb
CPT/HCPCS: 36415; 73080; 73723; 82565; 84520